=== PATIENT | male | born 1975 | race Caucasian/White ===

== ENCOUNTER 2021-09-06 14:07 | Emergency (ER) | payer SELFPAY ==
[~2021-09-06] VITALS: Ht 170.2 cm; Wt 75.0 kg
[2021-09-06 14:10] VITALS: BP 105/65
[2021-09-06] MEDS ORDERED: ACETAMINOPHEN WITH CODEINE 300/30MG TABLET PO ONE (14:45)
[2021-09-06] MEDS ORDERED: NAPR-1176 MT (15:37)
== END 2021-09-06 15:58 | disposition home or self-care (01) ==
LOC: ER 14:07
DX: S40.021A Contusion of right upper arm, initial encounter (principal); S39.012A Strain of muscle, fascia and tendon of lower back, initial encounter; V49.59XA Passenger injured in collision with other motor vehicles in traffic accident, initial encounter; Y93.89 Activity, other specified; Y92.89 Other specified places as the place of occurrence of the external cause; Y99.8 Other external cause status
CPT/HCPCS: 73030; 73090; 99284